=== PATIENT | female | born 1960 | race Caucasian/White ===

== ENCOUNTER 2022-07-29 08:04 | Outpatient (CLI) | payer OTHER, SELFPAY ==
[2022-07-29 08:27] LABS: Hematocrit 42.3 % (37.0-47.0)
[2022-07-29 08:35] LABS: Albumin Level 4.2 g/dL (3.5-5.1); Estimated Glomerular Filt Rate > 60; Glucose 85 mg/dL (65-110)
--- NOTE | 2022-07-29 08:51 | ECG_ITS ---
Measurements Intervals [place] Rate: 72 P: -1 [place]: 184 QRS: -33 QRSD: 98 T: 11 QT: 392 QTc: 431 Interpretive Statements SINUS RHYTHM MARKED LEFT AXIS DEVIATION [QRS AXIS < -30] ABNORMAL ECG NO PREVIOUS ECG AVAILABLE FOR COMPARISON Electronically Signed On 07-29-2022 15:29:38 CDT by Vijay Kent M.D.
[2022-07-29 09:07] LABS: Hemoglobin A1C 5.8 % (<5.7)
[2022-07-29 09:48] LABS: Urine Cotinine NEGATIVE
== END 2022-07-29 08:05 | disposition home or self-care (01) ==
PROVIDERS: Visit Provider Orthopaedic Surgery
DX: M17.11 Unilateral primary osteoarthritis, right knee (principal); R94.31 Abnormal electrocardiogram [ECG] [EKG]
CPT/HCPCS: 80307; 82040; 82565; 82947; 83036; 85014; 85018; 93005

== ENCOUNTER 2022-10-04 01:22 | Day surgery (SDC) | payer OTHER, SELFPAY ==
--- NOTE | 2022-09-12 09:32 | PC.NURSE ---
PRE-OP INSTRUCTIONS, PLEASE READ CAREFULLY Report to the Outpatient Waiting Room, entrance under the green pavilion located off [facility], at time _0600_ on date _10/04/22_. Planned Procedure Time: _0730_. PACK A SMALL OVERNIGHT BAG AND LEAVE IN THE CAR ALONG WITH YOUR WALKER Time changes happen often and if your time is changed the preop area will call you the afternoon before. - You and your visitor will be asked to self-screen and do not enter if you have any COVID symptoms. - A mask is optional within the hospital at this time. -VISITING HOURS 8AM-8PM Patients may have clear liquids (water, carbonated beverages, clear teas, apple juice) until 3 hours prior to surgery (0430 AM) with a maximum of 20 ounces. - No food from midnight until time of surgery Take the following medications with a SIP of water the morning of surgery: _LEVOTHYROXINE, TYLENOL & EYE DROPS IF NEEDED_ DO NOT STOP ANY OF YOUR OTHER PRESCRIPTION MEDICATIONS PRIOR TO SURGERY ?EXCEPT THE FOLLOWING Medications to discontinue per DR. BYRD -_IBUPROFEN, ALEVE 7 DAYS PRIOR TO SURGERY, Date to take last dose 09/26/22_ Medications to discontinue per ANESTHESIA - MULTIVITAMIN, & SUPPLEMENTS 3 DAYS PRIOR TO SURGERY, Date to take last dose 09/30/22_ Please no make-up, nail malay, hairspray, perfume, deodorant, or body powder the day of surgery. No jewelry (including any body piercings) or valuables the day of surgery, leave them at home. Please take a shower or bath the night before, or the morning of, surgery with an antibacterial soap. Wear comfortable, loose fitting clothing. - Jewelry must be removed prior to entering the operating room. Rings and piercings that are not removed may be cut off. - The hospital will not accept responsibility for valuables. - Please leave all valuables, including medications, at home the day of surgery. If you are going home after surgery, a licensed local truck driver must drive you home. - NO public transportation without another adult if you receive anesthesia. - We recommend that an adult stay with you for 24 hours following discharge. - We also recommend that you do not drive, make important decision, drink alcoholic beverages, or take any drugs that were not prescribed by your health care provider for at least 24 hours after your discharge time. Follow any additional instructions given to you from your surgeon. If you or anyone in your household have experienced Covid symptoms in the past week, please notify your surgeon or the nurse liaison at the phone number below for possible testing. Instructions given to _PATIENT & SPOUSE (RADHA)_and asked if any additional questions and then verbalized understanding. Patient advised to call surgeon office or pre surgery nurse liaison [phone] if any additional questions.
[2022-09-12 10:42] VITALS: BP 144/82; PULSE 80; RESP 18; TEMP 36.7; O2SAT 98; BMI 37.6
--- NOTE | 2022-10-03 13:55 | WPDANESEPPF ---
Anes - Initial Pre Proc Eval Procedure: Operation Date: 10/04/22 07:30 Proposed Procedures p Custom Right Total Knee Arthroplasty - Dashawn Paez MD Date/Time: 10/03/22 13:55 Surgeon: Dashawn Paez MD Pre Op Diagnosis: primary OA right knee Patient Data Age: 62 Gender: F Height: 1.61 m Weight: 98 kg Last Vital Signs Temp 36.7 C 09/12/22 10:42 Pulse 80 09/12/22 10:42 Resp 18 09/12/22 10:42 BP 144/82 H 09/12/22 10:42 Pulse Ox 98 09/12/22 10:42 O2 Del Method Room Air 09/12/22 10:42 Allergies Allergy/AdvReac Type Severity Reaction Status Date / Time erythromycin base Allergy Unknown Abdominal Verified 09/12/22 10:04 Pain moxifloxacin [From Avelox] Allergy Unknown Other Verified 09/12/22 10:04 chlorhexidine AdvReac Unknown Rash Verified 09/12/22 10:31 Home Medications Medication Instructions Recorded Confirmed Type vypnxkcfpfgelvjlducnye-ykhmafaa-yobckzti 1 drp ophthalmic (eye) Q2-4H PRN 04/23/20 09/12/22 History 80 0.5 %-1 %-0.5 % eye drops Dry Eyes (Refresh Optive Advanced) desonide 0.05 % topical cream 1 applic topical DAILY 04/23/20 09/12/22 History ibuprofen 200 mg tablet (Advil) 200 mg PO Q6H PRN Pain 04/23/20 09/12/22 History multivit with 1 tablet PO DAILY 04/23/20 09/12/22 History ashzjdgr-icbw-YB-lutein 8 mg iron-400 mcg-300 mcg tablet (Centrum Silver Women) naproxen sodium 220 mg tablet 220 mg PO BID PRN Pain 04/23/20 09/12/22 History (Aleve) omega-3 fatty acids 1,000 mg 1,000 mg PO DAILY 04/23/20 09/12/22 History capsule (Fish Oil Concentrate) vitamins A,C,I-wcyp-myxvab 4,296 1 cap PO QAM AND QPM 04/23/20 09/12/22 History mcg-226 mg-90 mg capsule (PreserVision AREDS) acetaminophen 500 mg tablet 500 mg PO QID PRN Pain 09/12/22 09/12/22 History ascorbic acid (vitamin C) 500 mg 500 mg PO DAILY 09/12/22 09/12/22 History capsule,extended release (Vitamin C) calcium citrate 200 mg 2 tablet PO DAILY 09/12/22 09/12/22 History calcium-vitamin D3 6.25 mcg (250 unit) tablet (Citracal-D3 Petites) cholecalciferol (vitamin D3) 50 50 mcg PO DAILY 09/12/22 09/12/22 History mcg (2,000 unit) tablet estradiol 0.01% (0.1 mg/gram) 1 g vaginal 2XW 09/12/22 09/12/22 History vaginal cream (Estrace) levothyroxine 100 mcg tablet 100 mcg DAILY 09/12/22 09/12/22 History Patient hx anesthesia problems: none Family hx anesthesia problems: none Results Review: All pre-operative results and documents have been reviewed as part of the pre-operative evaluation. [facility] Past Medical History Medical History (Updated 10/03/22 @ 13:56 by Tc Flores DO) Graves disease History of anal fissures ELISEO (obstructive sleep apnea) Surgical History Surgical History (Updated 10/03/22 @ 13:56 by Tc Flores DO) H/O: hysterectomy History of cholecystectomy History of Morelia fundoplication Social History Social History Smoking status: Never smoker Second hand tobacco smoke exposure: No Additional smoking assessment comments: PT DENIES ALL FORMS OF TOBACCO USE Alcohol intake: never Substance use: never Substance use type: does not use Lack of Transportation: No Lack of Food: Never True Current Housing: I Have Housing Concerned About Future Housing: No Difficulty Paying Gas/Electric Bills: No Difficulty Paying for Meds: No Currently Unemployed: No Education: High School Diploma/GED Difficulty w/ Childcare or Family Care: No Living arrangements: with family Spiritual care concerns: No Anes - Eval Final PreProcedure Day of Procedure 10/03/22 13:55 Patient weight: obese Heart: regular rate and rhythm Lungs: clear to auscultation Airway: Mallampati scale class III Neurological: alert and oriented Last oral intake: >/= 8 hours ASA classification: III Emergent: no Anesthetic plan: proceed Anesthesia type and monito
[2022-10-04] VITALS (16 sets, daily range): BP systolic 101–151; BP diastolic 55–88; PULSE 66–94; RESP 10–18; TEMP 36.1–37.3; O2SAT 95–100
--- NOTE | ~2022-10-04 | XR_ITS ---
EXAMINATION: [id number] DATE: 10/04/2022 09:45 INDICATION: Postoperative evaluation following right total knee arthroplasty. TECHNIQUE: Anteroposterior and lateral views of the right knee were obtained. COMPARISON: None. FINDINGS: Right total knee arthroplasty with patellar resurfacing appears well seated. 6 degree varus tilt of t he tibial component. Normal alignment to the mechanical axis of the knee. No fractures identified. Ex pected postoperative subcutaneous and intra-articular gas. IMPRESSION: 1. Right total knee arthroplasty, negative for postoperative purposes. Reviewed, dictated and finalized at location A.
[2022-10-04] MEDS: LACTATED RINGERS 1,000 ML 30 ML IV CONT ×2 (06:30→09:34)
[2022-10-04] MEDS: ACETAMINOPHEN 500 MG TABLET 1000 MG PO (07:00)
--- NOTE | 2022-10-04 07:07 | WPDANESPNB ---
Anes - Peripheral Nerve Block Date/Time: 10/04/22 07:07 I have discussed with the patient/family/POA the placement of a peripheral nerve block for post-operative pain management, including associated risks, benefits, complications, and side effects. Alternative methods of post-operative analgesia were detailed. Questions were solicited and answers provided to the satisfaction of the patient/family/POA. Time-Out: A pre-procedural Time-Out was completed immediately before starting the procedure and confirmed: Patient Identification, Site, Procedure, Patient Position and the Availability of Requisite Equipment. Clinical Indications: Acute post-operative pain management requested by the operative surgeon. Nerve Block Insertion Note Anes-nerve block: adductor canal right Patient position: supine Skin prep: chlorhexidine Needle: 22 gauge, stimulating, insulated echogenic needle. Needle length: 80 mm Technique: ultrasound Injectate: bupivacaine 0.5% with epi 5 mcg/ml (30cc - no epi) Observations: tolerated well Complications: none Procedure start time:: 725 Procedure end time:: 728
[2022-10-04] MEDS: TRANEXAMIC ACID 1,000MG/ISO100 1,000 MG/100 ML BAG 200 MG IVPB (07:20)
--- NOTE | 2022-10-04 07:22 | WPDHPUPDATE1 ---
History and Physical Update Update Date/Time: 10/04/22 07:22 History and Physical has been reviewed, including an updated exam of the patient. There are NO changes in the patient's condition. Risks, benefits, and alternatives have been discussed and questions answered. Patient agrees to proceed with procedure.
[2022-10-04] MEDS: ceFAZolin 2 GM/D5W 50 ML 2 GM/50 ML BAG IVPB (07:30)
[2022-10-04] MEDS: GENTAMICIN BONE CEMENT REFOBACIN 1 EACH TOPICAL (08:43)
--- NOTE | 2022-10-04 09:51 | P.OP_ITS ---
Procedure Note - Detailed Date of Procedure 10/04/22 Pre-op Diagnosis Primary OA right knee Post-op Diagnosis Same Procedure Performed Total knee arthroplasty, right. Surgeon Dashawn Paez MD Feed Management Advisor Anesthesia General and Regional (Subsartorial block.) Findings Satisfactory bone quality. Moderate medial release. PCL release. Standard resections based on preoperative 3D planning. Description of Procedure Preoperative antibiotics were given. The limb was prepped and draped in the usual sterile fashion with a well-padded tourniquet high on the thigh. The limb was exsanguinated and the tourniquet inflated to 300 mmHg. A longitudinal incision was created just medial to the patella. A trivector approach to the knee was performed. Arthrotomy was taken down through the joint capsule. No significant releases were initially taken. The femur was exposed and the F1 jig was applied. The coring tool was used to remove the cartilage for the F2 jig to sit flush with the bone. The jig was pinned and the distal cut carefully taken. Caliper measurements confirmed appropriate bony resections according to the preoperative templated plan. The F4 cutting jig for the femur was applied, at the standard rotation. The AP and anterior chamfer cuts were taken. The F5 jig was applied and the posterior chamfer cuts were taken. The tibia was prepared using the T1 jig, after removing cartilage for the jig contact points. Proper alignment was checked with the alignment alexey. The tibia was cut using the T1u guide. Gap balancing was performed. Gap measurements were taken and the knee was trialed. Excellent alignment and soft tissue balancing was confirmed. The posterior cruciate ligament was recessed along the proximal tibia. The patella was cut for resurfacing. Three lug holes were drilled. Meniscal remnants were removed. The trial components were assembled. Excellent range of motion and proper soft tissue balancing were confirmed throughout the full range of motion. Patellar tracking was excellent. The knee was copiously irrigated periodically throughout the procedure. The real implants were cemented into position. Excess cement was carefully removed. The wound was closed in layers with interrupted #1 Vicryl suture, #2 strata fix suture, 2-0 strata fix suture, 3-0 strata fix suture. Steri-Strips placed on the skin with the knee flexed. Sterile bulky dressing applied. The patient was brought to the recovery room in stable condition. There were no complications. Implants Conformis Imprint total knee arthroplasty. Cemented. Cruciate retaining. 8 mm insert. 32 mm round patella. Estimated Blood Loss 20 Tourniquet Time 56 Drains No Complications No immediate complications Condition Stable Disposition PACU [facility] Billing Surgery - Charge Forward: Surgery Billing
[2022-10-04] MEDS: fentaNYL CITRATE INJ (*CRX) 100 MCG/2 ML VIAL 25 MCG IV PUSH ×2 (10:03→10:07)
--- NOTE | 2022-10-04 11:38 | ADMGEN ---
This patient, Geno Dewey, was admitted to [address] [facility] Surg Room 319-01. Patient/family oriented to hospital policies and general routines including ID bracelet, bed and alarms, visiting hours, pain management, procedures, bathroom and other care routines, personal items, smoking policy, room service/diet, and visiting hours. Information on how to activate the Rapid Response Team has been discussed. Patient/Family are encouraged to report perceived risks to care and to ask questions if they do not understand what they are told or what they should do. Report from Juliann in PACU.
--- NOTE | 2022-10-04 14:46 | PM.DS ---
DS: Admitting Diagnosis Discharge Date 10/05/22 Admitting Diagnosis DJD knee, right. DS: Discharge Diagnosis Discharge Diagnosis (1) Status post total knee replacement, right: Code(s): Z96.651 - Presence of right artificial knee joint Status: Acute DS: Summary Hospital Course Reason for hospitalization: Total knee arthroplasty. Hospital Course: Tolerated surgery well. Progressed appropriately with therapy. Status at Discharge Functional status at discharge: uses cane/walker Overall status at discharge: patient is progressing back to baseline Time Spent with Patient Time attestation: Total time spent providing and/or coordinating discharge services: Exam Const: General: no acute distress Resp: Effort & Inspection: normal respiratory effort Skin: Other: Wound healing well. Mepilex dressing intact. No hematoma or drainage. Neuro: Motor exam (neuro): 5/5 motor strength present throughout Sensory Exam: normal sensation Psych: Mental Status: mental status grossly normal Speech and movement: Normal speech and movement present DS: Data Data Completed and Pending Labs on day of discharge: Labs from last 24 hours 10/04/22 06:29 Blood Type O Negative Antibody Screen Negative Discharge Plan Discharge Patient Disposition: Home, Self-Care Discharge Instructions: See instruction sheet. Stand Alone Forms: General Discharge Instructions Follow-up/Referrals: Dashawn Paez MD [Physician] - Discharge Medications: New oxycodone-acetaminophen 5-325 mg tablet 1 - 2 tablet PO Q6H MDD 6 tablets PRN (Reason: pain) Qty: 30 0RF prednisone 5 mg tablet 5 mg PO DAILY Qty: 20 0RF aspirin [Enteric Coated Aspirin] 81 mg tablet,delayed release (DR/EC) 81 mg PO DAILY Qty: 28 0RF meloxicam 7.5 mg tablet 7.5 mg PO .twice daily Qty: 60 0RF Continued desonide 0.05 % cream 1 applic topical DAILY PRN (Reason: Inflammation) omega-3 fatty acids [Fish Oil Concentrate] 1,000 mg capsule 1,000 mg PO DAILY PreserVision AREDS [id number],320-226-200 ocre-im-auvs capsule 1 cap PO QAM AND QPM Refresh Optive Advanced 0.5-1-0.5 % drops 1 drp ophthalmic (eye) Q2-4H PRN (Reason: Dry Eyes) Centrum Silver Women 8 mg iron-400 mcg-300 mcg tablet 1 tablet PO DAILY calcium citrate-vitamin D3 [Citracal-D3 Petites] 200 mg-6.25 mcg (250 unit) tablet 2 tablet PO DAILY acetaminophen 500 mg Tablet 500 mg PO QID PRN (Reason: Pain) levothyroxine 100 mcg tablet 100 mcg DAILY ascorbic acid (vitamin C) [Vitamin C] 500 mg Capsule, Extended Release 500 mg PO DAILY cholecalciferol (vitamin D3) 50 mcg (2,000 unit) Tablet 50 mcg PO DAILY Discontinued naproxen sodium [Aleve] 220 mg tablet 220 mg PO BID PRN (Reason: Pain) ibuprofen [Advil] 200 mg tablet 200 mg PO Q6H PRN (Reason: Pain) Quality VTE Prophylaxis VTE prophylaxis: mechanical ordered (MICHELLE roy and Lino)
[2022-10-04] MEDS: ceFAZolin 1 GM/NS 50 ML 1 GM/50 ML BAG IVPB ×2 (16:02→22:55)
[2022-10-04] MEDS: MELOXICAM 7.5 MG TABLET PO (16:28)
[2022-10-04] MEDS: ASPIRIN 81 MG ENTERIC TABLET PO (16:28)
[2022-10-04] MEDS: SENNA/DOCUSATE SODIUM TABLET 2 TAB PO (16:28)
[2022-10-04] MEDS: OPTI-GEN TAB 1 TABLET PO (16:29)
--- NOTE | 2022-10-04 17:07 | PCPTNOTE ---
On 10/04/22, the student, [Dariela Bañuelos], provided care and completed [facility] documentation on this patient. I have reviewed the student's documentation and agree with the findings.
[2022-10-05 00:01] VITALS: BP 128/59; PULSE 80; RESP 14; TEMP 36.1; O2SAT 97
[2022-10-05 02:40] VITALS: PULSE 72; RESP 15; O2SAT 98
[2022-10-05 04:00] VITALS: BP 131/66; PULSE 83; RESP 16; TEMP 36.2; O2SAT 96
[2022-10-05 06:32] LABS: Hematocrit 39.4 % (37.0-47.0); Hemoglobin 12.8 g/dL (12.0-15.0); Mean Corpuscular HGB Conc 32.5 g/dl (32-36); Mean Corpuscular Hemoglobin 29.9 pg (26-34); Mean Corpuscular Volume 92.1 fl (80-100); Platelet Count Result 255 k/mm3 (150-375); Red Blood Count 4.28 M/mm3 (4.2-5.4); White Blood Count 12.1 K/mm3 (4.5-10.0)
[2022-10-05 06:33] LABS: Basophils Absolute Auto 0.1 K/mm3 (0.0-0.1); Basophils Percent Auto 0.5 % (0.2-1.2); Eosinophils Percent Auto 0.2 % (0-4.4); Immature Granulocyte Absolute 0.04 K/mm3 (0.00-0.031); Immature Granulocyte Percent A 0.3 % (0-0.5); Lymphocytes Absolute Auto 2.29 K/mm3 (0.9-3.2); Monocytes Absolute Auto 1.3 K/mm3 (0.1-0.6); Neutrophils Absolute Auto 8.3 K/mm3 (1.3-6.7)
[2022-10-05 06:42] LABS: Anion Gap 3 mmol/L (8-16); Blood Urea Nitrogen 13 mg/dL (7-17); Calcium 8.7 mg/dL (8.4-10.2); Carbon Dioxide 32 mmol/L (22-30); Chloride 101 mmol/L (98-107); Estimated CRCL calculation 78 ml/min; Estimated Glomerular Filt Rate > 60; Glucose 107 mg/dL (65-110); Potassium 4.1 mmol/L (3.4-5.0); Sodium 136 mmol/L (137-145)
[2022-10-05] MEDS: ceFAZolin 1 GM/NS 50 ML 1 GM/50 ML BAG IVPB (06:43)
[2022-10-05] MEDS: LEVOTHYROXINE SODIUM 100 MCG TABLET PO (06:43)
[2022-10-05 08:07] VITALS: BP 124/67; PULSE 84; RESP 16; TEMP 36.4; O2SAT 98
[2022-10-05] MEDS: SENNA/DOCUSATE SODIUM TABLET 2 TAB PO (08:42)
[2022-10-05] MEDS: predniSONE 5 MG TABLET PO (08:42)
[2022-10-05] MEDS: ASPIRIN 81 MG ENTERIC TABLET PO (08:42)
[2022-10-05] MEDS: MELOXICAM 7.5 MG TABLET PO (08:42)
[2022-10-05] MEDS: CHOLECALCIFEROL 1,000 UNITS TABLET 2000 UNITS PO (08:42)
[2022-10-05] MEDS: MULTIVITAMINS /C LUTEIN (CENTRUM SILVER) TABLET *BKC 1 TAB PO (08:42)
[2022-10-05] MEDS: oxyCODONE HCL (*CRX) 5 MG TAB IR PO ×2 (08:43→12:47)
[2022-10-05] MEDS: ASCORBIC ACID 500 MG TABLET PO (08:43)
[2022-10-05] MEDS: OPTI-GEN TAB 1 TABLET PO (08:43)
[2022-10-05] MEDS: polyethylene glycoL 3350 17 GM POWD.PACK PO (08:43)
[2022-10-05] MEDS: OMEGA 3 POLYUNSAT FATTY ACIDS 1 GM CAP PO (08:43)
--- NOTE | 2022-10-05 10:03 | P.PNAN_ITS ---
Anes - Prog Note Post-Op Date/Time: 10/05/22 10:03 Cardiovascular status: normal Respiratory status: normal Airway patency: baseline Mental status: baseline Post-Op hydration status: normal Vital Signs: Last Vital Signs Temp 97.5 F L 10/05/22 08:07 Pulse 84 10/05/22 08:07 Resp 16 10/05/22 08:07 BP 124/67 10/05/22 08:07 Pulse Ox 98 10/05/22 08:07 O2 Del Method Autopap 10/05/22 08:00 O2 Flow Rate 2 10/04/22 10:51 Pain Score (VAS): 0/10 I/O: Intake & Output 10/04/22 10/05/22 10/05/22 23:59 07:59 15:59 Intake Total 590 400 480 Balance 590 400 480 Laboratory Tests 10/05/22 06:21 10/05/22 06:21 10/05/22 06:21 WBC 12.1 H RBC 4.28 Hgb 12.8 Hct 39.4 MCV 92.1 MCH 29.9 MCHC 32.5 RDW 14.0 Plt Count 255 MPV 9.0 Immature Gran % (Auto) 0.3 Neut % (Auto) 69.0 Lymph % (Auto) 19.0 Hendry % (Auto) 11.0 H Eos % (Auto) 0.2 Baso % (Auto) 0.5 Lymph # (Auto) 2.29 Hendry # (Auto) 1.3 H Eos # (Auto) 0.0 Baso # (Auto) 0.1 Abs Immat Gran (auto) 0.04 H Absolute Neuts (auto) 8.3 H Absolute Nucleated RBC 0.0 Nucleated RBC % 0.0 Sodium 136 L Potassium 4.1 Chloride 101 Carbon Dioxide 32 H Anion Gap 3 L BUN 13 Creatinine 0.70 Estim Creat Clear Calc 78 Estimated GFR > 60 Glucose 107 Calcium 8.7 Post-procedural complaints: none Patient Feedback: Patient satisfied with anesthetic care.
--- NOTE | 2022-10-05 10:59 | PCPTNOTE ---
On 10/05/22, the student, MOLLY Alva, provided care and completed [facility] documentation on this patient. I have reviewed the student's documentation and agree with the findings.
--- NOTE | 2022-10-05 14:59 | PCCCNOTE ---
On 10/05/22, the student, [Tanisha Albarado], provided care and completed [facility] documentation on this patient. I have reviewed the student's documentation and agree with the findings.
== END 2022-10-05 14:24 | disposition home or self-care (01) ==
LOC: ANHSURGERY 09:47 → ANH3MEDSUR 10:57
PROVIDERS: Visit Provider Orthopaedic Surgery
PROC: (CPT 27447; principal; 2022-10-04 07:30)
DX: M17.11 Unilateral primary osteoarthritis, right knee (principal); G89.18 Other acute postprocedural pain; G47.33 Obstructive sleep apnea (adult) (pediatric); E66.9 Obesity, unspecified; Z68.37 Body mass index [BMI] 37.0-37.9, adult
CPT/HCPCS: 27447; 64447; 36415; 73560; 80048; 80307; 82947; 85025; 86850; 86900; 86901; 87081; 97110; 97116; 97161; 97165; 97530; 97535; A9270; C1713; C1776; J0171; J0690; J1100; J1170; J1885; J2250; J2270; J2370; J2405; J2704; J2795; J3010; J7120; J7512